=== PATIENT | female | born 1935 | race Caucasian/White ===

== ENCOUNTER 2017-10-03 12:33 | Observation (INO) | payer MEDICARE, OTHER ==
[~2017-10-03] VITALS: Ht 152.4 cm; Wt 57.2 kg
[~2017-10-03 12:33] MED LIST: ASPIR 8181 MG PO; HYDROCHLOROTH12.5 M1 PO; LIPITOR40 MG PO; LISINOPRIL10 MG PO
[2017-10-03 12:41] VITALS: BP 232/78
[2017-10-03] MEDS ORDERED: CHILDREN'S ASPI81 M1 PO (12:46)
[2017-10-03] MEDS ORDERED: LOSARTAN POTASS25 MG PO (12:46)
[2017-10-03] MEDS ORDERED: IRON325 PO (12:47)
[2017-10-03 13:12] LABS: ABSOLUTE EOSINOPHILS 0.1 thou/uL (0.0-0.7); ABSOLUTE LYMPHOCYTES 1.3 thou/uL (0.8-5.3); ABSOLUTE MONOCYTES 0.4 thou/uL (0.0-1.2); ABSOLUTE NEUTROPHILS 5.3 thou/uL (1.6-8.1); BASOPHILS 0.6 %; HEMATOCRIT 47.9 % (37.0-47.0); HEMOGLOBIN 16.1 gm/dL (12.0-15.0); LYMPHOCYTES 18.4 %; MCH 30.5 pg (26.0-34.0); MCHC 33.6 g/dL (28.0-37.0); MCV 90.9 fL (80.0-100.0); MONOCYTES 5.5 %; MPV 7.3 fl. (7.2-11.1); NUCLEATED RBCS 0 /100WBC; PLATELET COUNT* 177 thou/uL (150-400); POLYS 74.5 %; RBC 5.26 mil/uL (4.20-5.00); RDW-CV 13.5 % (10.5-14.5); WBC 7.1 thou/uL (4.0-11.0)
[2017-10-03 13:17] LABS: APTT 27.7 Seconds (25.0-31.3)
[2017-10-03 13:18] LABS: ANION GAP 8 mmol/L (7-16); BUN 15 mg/dL (7-18); CALCIUM 9.5 mg/dL (8.5-10.1); CHLORIDE 104 mmol/L (98-107); CO2 28 mmol/L (21-32); CREATININE 0.8 mg/dL (0.6-1.3); GLUCOSE 114 mg/dL (70-99); POTASSIUM 3.6 mmol/L (3.5-5.1); SODIUM 140 mmol/L (136-145)
[2017-10-03 13:24] LABS: ALKALINE PHOSPHATASE 151 U/L (46-116); SGOT 40 U/L (15-37); SGPT 45 U/L (30-65); TOTAL BILIRUBIN 0.9 mg/dL (<0.1-1.0); TOTAL PROTEIN 7.7 g/dL (6.4-8.2); TROPONIN-I LEVEL <0.06 ng/mL (<0.06)
[2017-10-03 14:48] VITALS: BP 135/51
[2017-10-03 15:05] LABS: URINE BILIRUBIN NEGATIVE (Negative); URINE BLOOD NEGATIVE (Negative); URINE CLARITY CLEAR; URINE COLOR YELLOW; URINE GLUCOSE-RANDOM NEGATIVE (Negative); URINE KETONES NEGATIVE (Negative); URINE LEUKOCYTES-REFLEX 1+ (Negative); URINE NITRITE-REFLEX NEGATIVE (Negative); URINE PROTEIN NEGATIVE (Negative); URINE UROBILINOGEN 0.2 E.U./dl (0.2-1.0)
[2017-10-03 15:12] LABS: SQUAMOUS 0-3 Few /LPF (0-3)
[2017-10-03 15:13] LABS: BACTERIA-REFLEX None Seen /HPF (None Seen); CASTS None Seen /LPF (None Seen); CRYSTALS None Seen /LPF (None Seen); MUCUS 0-3 Light strn/LPF (None Seen); URINE RBC 0-2 Rare /HPF (0-2); URINE WBC-REFLEX 6-15 Few /HPF (0-5)
[2017-10-03 16:26] VITALS: BP 220/76
--- NOTE | 2017-10-03 19:32 | NUR ---
RECEIVED REPORT AND ASSUMED CARE AT 1445. VSS CARDIAC MONITORING IN PLACE. PT ON RA, UP WITH ASSIST. PT DENIES ANY COMPLAINTS OFF PAIN. ASSESSMENT COMPLETED CHARTED. PT ORIENTATED TO ROOM, CALL LIGHT. BEDIN LOWEST POSITION, CALL LIGHT WTIHIN REACH, BED ALARM ON. NURSING WILL CONTINUE TO MONITOR
[2017-10-03 19:55] VITALS: BP 134/54
[2017-10-03 23:44] VITALS: BP 143/44
[2017-10-04 03:34] VITALS: BP 150/49
[2017-10-04 05:16] LABS: CHOLESTEROL 143 mg/dL (<200); HDL CHOLESTEROL 72 mg/dL (>40); LDL CHOLESTEROL 65 mg/dL (<100); TRIGLYCERIDE 33 mg/dL (<150); VLDL 7 mg/dL (<40)
[2017-10-04 05:17] LABS: SERUM ASSESSMENT CLEAR
--- NOTE | 2017-10-04 06:13 | NUR ---
END SHIFT: PT RESTED WELL. NO PAIN. IVF INFUSING. UP WITH ASSIST- PT IS UNSTEADY AND NEEDS MODERATE ASSISTANCE TO BATHROOM. SR/SB ON MONITOR. PT REPORTS DIZZINESS AND "OFF FEELING IN HEAD." SAFETY PRECAUTIONS IN PLACE. VSS. ASSESSMENT UNCHANGED. CALL LIGHT IN REACH. PERFORMED HOURLY ROUNDING. WILL CONT TO MONITOR.
--- NOTE | 2017-10-04 11:00 | NUR ---
MET WITH PT AND DTR TO DISCUSS HOME SITUATION/DC PLANNING. PT LIVES WITH S/O, IS INDEPENDENT AND ACTIVE. HAS WALKER IF NEEDED. SHE IS ABLE TO DO HER OWN ADLS, DOESN'T DRIVE ANYMORE. FAMILY IS SUPPORTIVE. PT HAS HAD HH IN THE PAST. DENIES DC NEEDS
[2017-10-04 11:30] VITALS: BP 186/72
--- NOTE | 2017-10-04 12:34 | 2DMMODE ---
[place] [address] 2 D/M-MODE ECHOCARDIOGRAM Name: LISA PAZ Room: [address] IN [facility]#: [id number] Admission: 10/03/17 Attend Phys: Rafael Hameed Discharge: Date of : 35 Date of Service: 10/04/17 1234 Report #: [id number] THIS REPORT FOR: //name// APPROVED REPORT Study performed: 10/04/2017 11:05:23 EXAM: Comprehensive 2D, Doppler, and color-flow Echocardiogram Patient Location: In-Patient Room #: [facility] Status: routine BSA: 1.59 HR: 61 bpm BP: 150/49 mmHg Rhythm: NSR Other Information Study Quality: Good Indications Dizzy 2D Dimensions LVEF(%): 71.29 (>50%) IVSd: 12.48 (7-11mm) LVOT Diam: 18.56 (18-24mm) LVDd: 38.43 mm PWd: 9.67 (7-11mm) Ascending Ao: 35.07 (22-36mm) LVDs: 23.08 (25-40mm) Aortic Root: 32.45 mm Patton's LVEF: 71.29 % Volumes Left Atrial Volume (Systole) LA ESV Index: 30.40 mL/m2 Aortic Valve AoV Peak Toño.: 1.59 m/s AO Peak Gr.: 10.10 mmHg LVOT Max P.38 mmHg AO Mean Gr.: 5.11 mmHg LVOT Mean P.33 mmHg LVOT Max V: 1.45 m/s AO V2 VTI: 33.38 cm LVOT Mean V: 0.81 m/s KRYSTAL (VTI): 2.86 cm2 LVOT V1 VTI: 35.[address]: 1.32 m/s2 AI PHT: 608.89 [place] [address] 2 D/M-MODE ECHOCARDIOGRAM Name: LISA PAZ Room: [address] IN ..#: [id number] Admission: 10/03/17 Attend Phys: Rafael Hameed Discharge: Date of : 35 Date of Service: 10/04/17 1234 Report #: [id number] Mitral Valve E/A Ratio: 0.74 MV Decel. Time: 145.04 ms MV E Max Toño.: 0.84 m/s MV PHT: 42.06 ms MVA (PHT): 5.23 cm2 TDI E/Lateral E': 9.33 E/Medial E': 10.50 Medial E' Toño.: 0.08 m/s Lateral E' Toño.: 0.09 m/s Pulmonary Valve PV Peak Toño.: 1.03 m/s PV Peak Gr.: 4.27 mmHg Tricuspid Valve TR Peak Gr.: 20.45 mmHg RVSP: 25.00 mmHg Left Ventricle The left ventricle is normal size. There is normal LV segmental wall motion. Mild concentric left ventricular hypertrophy. Left ventricular systolic function is normal. The left ventricular ejection fraction is within the normal range. LVEF is 60-65%. Grade I - abnormal relaxation pattern. Right Ventricle The right ventricle is normal size. The right ventricular systolic function is normal. Atria The left atrium size is normal. The right atrium size is normal. Aortic Valve Mild aortic valve sclerosis. Trace to mild aortic regurgitation. There is no aortic valvular stenosis. Mitral Valve The mitral valve is normal in structure. Trace mitral regurgitation. No evidence of mitral valve stenosis. Tricuspid Valve The tricuspid valve is normal in structure. Mild tricuspid regurgitation. The RVSP is ___25____ mmHg[place] [address] 2 D/M-MODE ECHOCARDIOGRAM Name: LISA PAZ Room: [address] IN [facility]#: [id number] Admission: 10/03/17 Attend Phys: Rafael Hameed Discharge: Date of : 35 Date of Service: 10/04/17 1234 Report #: [id number] The pulmonary valve is normal in structure. There is no pulmonic valvular regurgitation. Great Vessels The aortic root is normal in size. IVC is normal in size and collapses with >50% inspiration Pericardium There is no pericardial effusion. <Conclusion> The left ventricle is normal size. Mild concentric left ventricular hypertrophy. Left ventricular systolic function is normal. The left ventricular ejection fraction is within the normal range. LVEF is 60-65%. Grade I - abnormal relaxation pattern. The right ventricle is normal size. The left atrium size is normal. The right atrium size is normal. Mild aortic valve sclerosis. Trace to mild aortic regurgitation. There is no aortic valvular stenosis. The mitral valve is normal in structure. Trace mitral regurgitation. The tricuspid valve is normal in structure. Mild tricuspid regurgitation. The RVSP is ___25____ mmHg. IVC is normal in size and collapses with >50% inspiration There is no pericardial effusion. There is normal LV segmental wall motion. <ELECTRONICALLY SIGNED> By: Walker Lima MD, [facility] 10/04/17 1234 1234 1234 Walker Lima MD, FACC /INF
--- NOTE | 2017-10-04 13:01 | EKG ---
[place] [address] ELECTROCARDIOGRAM REPORT Name: LISA PAZ Room: [address] IN [facility]#: [id number] Admission: 10/03/17 Attend Phys: Herber Porter Discharge: Date of : 35 Report #: [id number] THIS REPORT FOR: //name// [facility] ED Test Date: 2017-10-03 Test Time: 13:32:57 Pat Name: LISA MCAGRRYN Department: Room: Gender: Rn Renal: : 1935 Requested By: Mia Stacy Order Number: [id number] MD: Walker Lima Measurements Intervals [place] Rate: 78 P: 64 AR: 150 QRS: 6 QRSD: 94 T: -42 QT: 402 QTc: 458 Interpretive Statements Sinus rhythm Probable left atrial enlargement Nonspecific repol abnormality, lateral leads Compared to ECG 12/07/2016 17:17:54 Sinus bradycardia no longer present Electronically Signed On 10-04-2017 13:01:38 CDT by Walker Lima [email or web address] <ELECTRONICALLY SIGNED> By: Walker Lima MD, [facility] 10/04/17 1301 1332 1332 Walker Lima MD, [facility] /EPI
--- NOTE | 2017-10-04 13:02 | EKG ---
[place] [address] ELECTROCARDIOGRAM REPORT Name: LISA PAZ Room: [address] ADM IN M.R.#: [id number] Admission: 10/03/17 Attend Phys: Herber Porter Discharge: Date of : 35 Report #: [id number] THIS REPORT FOR: //name// [facility] ED Test Date: 2017-10-03 Test Time: 13:53:42 Pat Name: LISA MCGARRYN Department: Room: [address] Gender: F Commercial Sales Manager: [place] : 1935 Requested By: Rafael Hameed Order Number: [id number] Santos MD: Walker Lima Measurements Intervals [place] Rate: 75 P: 64 AR: 153 QRS: -1 QRSD: 91 T: 245 QT: 355 QTc: 397 Interpretive Statements Sinus rhythm Repol abnrm suggests ischemia, diffuse leads Compared to ECG 12/07/2016 17:17:54 Early repolarization now present Possible ischemia now present Sinus bradycardia no longer present Electronically Signed On 10-04-2017 13:02:02 CDT by Walker Lima [email or web address] <ELECTRONICALLY SIGNED> By: Walker Lima MD, [facility] 10/04/17 1302 1353 1353 Walker Lima MD, [facility] /EPI
--- NOTE | 2017-10-04 15:16 | NUR ---
RECEIVED CONSULT FOR POSSIBLE REHAB ADMISSION. CONSULT HAS BEEN ACKNOWLEDGED BY TELLERS SUPERVISOR AND DR. RODRIGUEZ. PATIENT ADMITTED WITH DIZZINESS AND HYPERTENSIVE URGENCY. NEUROLOGY CONSULTED MRI IS PENDING. PT/OT/ST EVALUATIONS ARE PENDING. WILL FOLLOW ALONG WITH PATIENT TO DETERMINE IF QUALIFIES FOR ACUTE REHAB. THANK YOU FOR THIS CONSULT.
[2017-10-04 15:40] VITALS: BP 186/72
[2017-10-04 16:00] VITALS: BP 180/61
--- NOTE | 2017-10-04 16:16 | NUR ---
I have reviewed the documentation by CELENA LOPEZ from to 10/04/17 and I concur with it. DAYANA MENA
[2017-10-04] MEDS ORDERED: KEFLEX500 M2 PO (16:37)
--- NOTE | 2017-10-04 20:56 | NUR ---
RECEIVED REPORT AND ASSUMED CARE AT 0700. VSS. CARDIAC MONITORING IN PLACE. PT DENIES ANY COMPLAINTS OF PAIN. PT SCHEDULED FOR ECHO, CARDIAC REHAB CONSULT, MRI TODAY. DISCUSSED PLAN OF CARE WITH PT. VERBALIZED UNDERSTANDING. BED IN LOWEST POSITION, CALL LIGHT WITHIN REACH. PT UP WITH ASSIST TO BATHROOM. ON RA. DISCHARGE ORDERS PLACED ON CHART. PAPAERWORK COMPLETEDE BY NURSING. IV AND CARDIAC MONITORING DISCONTINUED. DISCHARGE INSTRUCTIONS DISCUSSED WITH PT, ALL QUESTIONS AND CONCERNS ANSWERED AT THIS TIME. ALL BELIONGINGS GATHERED AND RETURNED TO PT. PT TRANSPORTED TO PERSONAL VEHICLE BY NURSING STAFF, TAKEN HOME BY HER DAUGHTER.
[2017-10-05 02:07] LABS: GLYCOHEMOGLOBIN (HGB A1C) 5.3 % (4.8-5.6)
--- NOTE | 2017-10-07 13:08 | NUR ---
Kate TAI COMPLETED 10/04/17. G-CODES NOW BEING REQUESTED. PER REVIEW OF EVAL, ESTIMATED [facility]-PAC 6 CLICKS SCORE OF 20, EQUATES TO 33.32% IMPAIRMENTS. G-CODES FOLLOWS: CURRENT - MOBILITY G8978, MODIFIER CJ GOAL - MOBILITY G8979, MODIFIER CI PT WAS DISCHARGED PRIOR TO ADDITIONAL VISITS.
--- NOTE | 2017-10-08 09:27 | NUR ---
PT.'S ADMISSION STATUS CHANGED TO OBSERVATION DURING HER STAY. PT.'S G-C0DES ARE CURRENT SELFCARE G8987 CJ, GOAL SELFCARE G8988 CJ, AND DISCHARGE G8989 CJ. HER AM-PAC 6-CLICKS SCORE IS 20 WITH QUALIFIER OF CJ.
== END 2017-10-04 19:40 | disposition home or self-care (01) ==
LOC: M.ERS 12:33 → M.TBA-ER 13:36 → M.2W 13:36
PROVIDERS: Physician Assistant; ADMIT Internal Medicine
DX: I63.9 Cerebral infarction, unspecified (principal); I16.1 Hypertensive emergency; R42 Dizziness and giddiness; R07.9 Chest pain, unspecified; I69.351 Hemiplegia and hemiparesis following cerebral infarction affecting right dominant side; I10 Essential (primary) hypertension; I25.10 Atherosclerotic heart disease of native coronary artery without angina pectoris; I73.9 Peripheral vascular disease, unspecified; E78.5 Hyperlipidemia, unspecified; I25.2 Old myocardial infarction; N39.0 Urinary tract infection, site not specified; Z87.891 Personal history of nicotine dependence